=== PATIENT | female | born 1985 | race Caucasian/White ===

== ENCOUNTER 2016-09-02 17:01 | Emergency (ER) | payer OTHER ==
[~2016-09-02] VITALS: Ht 152.4 cm; Wt 54.4 kg
--- NOTE | 2016-09-02 17:25 | NUR ---
URINE SAMPLE COLLECTED SENT TO LAB
[2016-09-02 17:29] LABS: APPEARANCE,URINE Clear (CLEAR); BILIRUBIN,URINE Negative (NEGATIVE); BLOOD, URINE Negative Ery/uL (NEGATIVE); COLOR,URINE Yellow (YELLOW); KETONES,URINE Negative (NEGATIVE); LEUKOCYTE ESTERASE ,URINE Negative (NEGATIVE); NITRITE, URINE Negative (NEGATIVE); PROTEIN,URINE Negative (NEGATIVE); UGLUCOSE Negative (NEGATIVE); UROBILINOGEN,URINE 0.2 EU/dL (0.2)
--- NOTE | 2016-09-02 17:35 | NUR ---
PT BIB SELF C/O IUD STRINGS FEELING LONGER X4 MONTHS AND STATES "I THINK I HAVE BV" D/T "FISHY" SMELL X 5 DAYS, WORST TODAY. DENIES URINARY SYMPTOMS. DENIES HEMATURIA. SKIN WARM NON-DIAPHORETIC. NO OTHER COMPLAINTS. IN ER OB BED.
--- NOTE | 2016-09-02 17:58 | NUR ---
EDILMA ROD PA AT BEDSIDE FOR PELVIC EXAM
--- NOTE | 2016-09-02 18:02 | NUR ---
US AT BEDSIDE
[2016-09-02 19:42] VITALS: BP 131/78
--- NOTE | 2016-09-02 19:42 | NUR ---
Patient discharged to home in stable condition. Written and verbal after care instructions given. Patient verbalizes understanding of instruction. AMBULATORY WITH STEADY GAIT.
[2016-09-07 01:10] LABS: *NEISSERIA GONORRHOEAE NAA Negative (Negative); CHLAMYDIA TRACHOMATIS NAA Negative (Negative)
== END 2016-09-02 19:43 | disposition home or self-care (01) ==
LOC: ER 17:09
DX: N76.0 Acute vaginitis (principal); F41.9 Anxiety disorder, unspecified; Z91.040 Latex allergy status; Z88.8 Allergy status to other drugs, medicaments and biological substances; Z88.6 Allergy status to analgesic agent
CPT/HCPCS: 76856-TC; 81000-TC; 84703-TC; 87491; 87591; A4606; Z7610

== ENCOUNTER 2016-11-07 16:28 | Emergency (ER) | payer OTHER ==
[~2016-11-07] VITALS: Ht 152.4 cm; Wt 56.7 kg
[2016-11-07] MEDS ORDERED: IV NS 0.9% 500 ML BAG IV ONE (17:00)
[2016-11-07 17:07] LABS: BASOPHILS # (AUTO) 0.3 /CMM (0.0-0.2); EOSINOPHILS # (AUTO) 0.2 /CMM (0.0-0.7); EOSINOPHILS % (AUTO) 2.3 % (0.0-6.0); HEMATOCRIT 43 % (33-45); HEMOGLOBIN 14.4 g/dL (11.5-14.8); LYMPHOCYTES # (AUTO) 1.5 /CMM (0.8-4.8); LYMPHOCYTES % (AUTO) 22.4 % (20.0-44.0); MEAN CORPUSCULAR HEMOGLOBIN 32 PG (26.0-33.0); MEAN CORPUSCULAR HGB CONC 33 g/dl (31.0-36.0); MEAN CORPUSCULAR VOLUME 95 fL (82-100); MONOCYTES # (AUTO) 0.9 /CMM (0.1-1.30); MONOCYTES % (AUTO) 12.8 % (2.0-12.0); NEUTROPHILS # (AUTO) 3.8 /CMM (1.8-8.9); NEUTROPHILS % (AUTO) 58.5 % (43.0-81.0); PLATELET COUNT (AUTO) 219 /CMM (150-450); RDW COEFFICIENT OF VARIATION 14.8 (11.5-15.0); RED BLOOD CELL COUNT(AUTO) 4.56 MIL/uL (4.0-5.2); WHITE BLOOD COUNT (AUTO) 6.7 K/uL (4.3-11.0)
[2016-11-07] MEDS ORDERED: ALBUTEROL FS 2.5 MG/3 ML VIAL.NEB ONE (17:08)
[2016-11-07 17:09] LABS: APPEARANCE,URINE Clear (CLEAR); BILIRUBIN,URINE Negative (NEGATIVE); BLOOD, URINE Trace-intact Ery/uL (NEGATIVE); COLOR,URINE Yellow (YELLOW); KETONES,URINE Negative (NEGATIVE); LEUKOCYTE ESTERASE ,URINE Negative (NEGATIVE); NITRITE, URINE Negative (NEGATIVE); PROTEIN,URINE Negative (NEGATIVE); UGLUCOSE Negative (NEGATIVE); UROBILINOGEN,URINE 0.2 EU/dL (0.2)
[2016-11-07] MEDS ORDERED: IPRATROPIUM NEB FS 0.5 MG/2.5 ML AMPUL.NEB ONE (17:11)
[2016-11-07 17:13] LABS: BACTERIA,URINE Few /HPF (None Seen); PREGNANCY TEST URINE QUAL NEGATIVE (NEGATIVE); SQUAMOUS EPITHELIAL CELL,UR Few /HPF (None Seen); WBC,URINE 0-2 /HPF (0-3)
[2016-11-07 17:19] LABS: CALCIUM, SERUM 8.6 mg/dL (8.5-10.1); CREATININE 0.6 mg/dL (0.6-1.3); POTASSIUM 3.6 mmol/L (3.5-5.1)
[2016-11-07 17:25] LABS: ALBUMIN 3.9 g/dL (3.4-5.0); BILIRUBIN,DIRECT 0.1 mg/dL (0.0-0.2); BILIRUBIN,TOTAL 0.2 mg/dL (0.2-1.0); TOTAL PROTEIN, SERUM 7.7 g/dL (6.4-8.2)
[2016-11-07] MEDS ORDERED: LORAZEPAM INJ 2 MG/ML VIAL IV ONE (17:30)
[2016-11-07] MEDS ORDERED: IPRATROPIUM NEB FS 0.5 MG/2.5 ML AMPUL.NEB NEB ONE (17:30)
[2016-11-07] MEDS ORDERED: ALBUTEROL FS 2.5 MG/3 ML VIAL.NEB NEB ONE (17:30)
[2016-11-07] MEDS ORDERED: LORAZEPAM INJ 2 MG/ML VIAL ONE (17:31)
--- NOTE | 2016-11-07 17:38 | NUR ---
ULTRASOUND AT BEDSIDE
[2016-11-07 18:36] VITALS: BP 122/78
--- NOTE | 2016-11-07 18:38 | NUR ---
Patient discharged to home in stable condition. Written and verbal after care instructions given. Patient verbalizes understanding of instruction.IV removed. Catheter intact and site benign. Pressure and 4x4 applied to site. No bleeding noted. prescriptions given. no further complaints.
== END 2016-11-07 18:38 | disposition home or self-care (01) ==
LOC: ER 16:30
DX: R10.84 Generalized abdominal pain (principal); R14.0 Abdominal distension (gaseous); E27.9 Disorder of adrenal gland, unspecified; F41.9 Anxiety disorder, unspecified; Z88.6 Allergy status to analgesic agent; Z88.8 Allergy status to other drugs, medicaments and biological substances; Z91.040 Latex allergy status
CPT/HCPCS: 36415; 71250-TC; 76705-TC; 80048-TC; 80076-TC; 81000-TC; 83690-TC; 84703-TC; 85025-TC; A4606; J2060; J7040; Z7610

== ENCOUNTER → 2017-12-12 | Emergency (ER) | payer OTHER ==
[~2017-12-12] VITALS: Ht 152.4 cm; Wt 53.1 kg
--- NOTE | 2017-12-12 14:10 | NUR ---
BIB SELF, PATIENT IS ALERT AND ORIENTED X 4, VERBALLY RESPONSIVE. ON ROOM AIR AND TOLERATED WELL. KEPT PATIENT COMFORTABLE. WILL CONTINUE TO MONITOR ACCORDINGLY.
--- NOTE | 2017-12-12 14:30 | NUR ---
DR. MCKEON AT BEDSIDE FOR EVAL.
--- NOTE | 2017-12-12 14:30 | NUR ---
SCIENCE TUTOR AT BEDSIDE.
[2017-12-12 15:01] LABS: APPEARANCE,URINE CLEAR (CLEAR); BILIRUBIN,URINE NEGATIVE (NEGATIVE); BLOOD, URINE NEGATIVE Ery/uL (NEGATIVE); KETONES,URINE NEGATIVE (NEGATIVE); LEUKOCYTE ESTERASE ,URINE NEGATIVE (NEGATIVE); NITRITE, URINE NEGATIVE (NEGATIVE); PH,URINE 6.5 (5.0-8.0); PROTEIN,URINE NEGATIVE (NEGATIVE); UGLUCOSE NEGATIVE (NEGATIVE); UROBILINOGEN,URINE 0.2 EU/dL (0.2)
[2017-12-12 15:15] LABS: COLOR,URINE STRAW (YELLOW)
[2017-12-12 16:36] VITALS: BP 108/84
== END | disposition home or self-care (01) ==
LOC: ER 14:03
DX: R10.2 Pelvic and perineal pain (principal); J45.909 Unspecified asthma, uncomplicated; Z88.6 Allergy status to analgesic agent; Z91.040 Latex allergy status
CPT/HCPCS: 76856; 81001; 84703; 99285; A4606; Z7610; 81000-TC

== ENCOUNTER 2018-08-25 02:09 | Emergency (ER) | payer OTHER ==
[~2018-08-25] VITALS: Ht 157.5 cm; Wt 61.2 kg
--- NOTE | 2018-08-25 02:10 | NUR ---
TO BED 3 BIB PARAMEDICS C/O N/V H6 HRS. PT AAOX4 NO ACUTE DISTRESS NOTED, RESP EVEN AND UNLABORED. PT NOTED TO BE DRY HEAVING AT THIS TIME. PENDING ER MD SARMIENTO.
--- NOTE | 2018-08-25 02:22 | NUR ---
PT AMBULATORY TO THE BATHROOM WITH STEADY GAIT NOTED.
[2018-08-25] MEDS ORDERED: ONDANSETRON HCL/PF 4 MG/2 ML VIAL ONE (02:45)
[2018-08-25] MEDS ORDERED: LORAZEPAM INJ 2 MG/ML VIAL ONE ×2 (02:46→03:32)
[2018-08-25 02:59] LABS: BASOPHILS # (AUTO) 0.1 /CMM (0.0-0.2); BASOPHILS % (AUTO) 0.3 % (0.0-2.0); HEMATOCRIT 45 % (33-45); HEMOGLOBIN 15.1 g/dL (11.5-14.8); LYMPHOCYTES # (AUTO) 1.2 /CMM (0.8-4.8); LYMPHOCYTES % (AUTO) 7.5 % (20.0-44.0); MEAN CORPUSCULAR HGB CONC 34 g/dl (31.0-36.0); MEAN CORPUSCULAR VOLUME 101 fL (82-100); MONOCYTES # (AUTO) 1.1 /CMM (0.1-1.30); MONOCYTES % (AUTO) 6.4 % (2.0-12.0); NEUTROPHILS # (AUTO) 14.1 /CMM (1.8-8.9); NEUTROPHILS % (AUTO) 85.8 % (43.0-81.0); PLATELET COUNT (AUTO) 294 /CMM (150-450); RED BLOOD CELL COUNT(AUTO) 4.43 MIL/uL (4.0-5.2); WHITE BLOOD COUNT (AUTO) 16.4 K/uL (4.3-11.0)
[2018-08-25] MEDS ORDERED: IV NS 0.9% 1,000 ML BAG IV ONE (03:00)
[2018-08-25] MEDS ORDERED: FAMOTIDINE/PF INJ 20 MG/2 ML VIAL IV ONE ×2 (03:00→03:15)
[2018-08-25] MEDS ORDERED: ONDANSETRON HCL/PF 4 MG/2 ML VIAL IVP ONE (03:00)
[2018-08-25] MEDS ORDERED: LORAZEPAM INJ 2 MG/ML VIAL IV ONE ×2 (03:00→04:00)
[2018-08-25 03:13] LABS: ALBUMIN 4.6 g/dL (3.4-5.0); BILIRUBIN,DIRECT 0.2 mg/dL (0.0-0.2); BILIRUBIN,TOTAL 0.8 mg/dL (0.2-1.0); CALCIUM, SERUM 9.5 mg/dL (8.5-10.1); CREATININE 0.8 mg/dL (0.6-1.3); POTASSIUM 4.5 mmol/L (3.5-5.1)
[2018-08-25 03:17] LABS: ALCOHOL, BLOOD 7 mg/dL (0-0)
[2018-08-25 04:14] LABS: APPEARANCE,URINE Clear (CLEAR); BILIRUBIN,URINE Negative (NEGATIVE); BLOOD, URINE Small Ery/uL (NEGATIVE); COLOR,URINE Yellow (YELLOW); KETONES,URINE >=160 (NEGATIVE); LEUKOCYTE ESTERASE ,URINE Negative (NEGATIVE); NITRITE, URINE Negative (NEGATIVE); PH,URINE 5.5 (5.0-8.0); PROTEIN,URINE 100 mg/dl (NEGATIVE); UGLUCOSE Negative (NEGATIVE); UROBILINOGEN,URINE 0.2 EU/dL (0.2)
--- NOTE | 2018-08-25 04:18 | NUR ---
PT RESTING QUIETLY, NO ACUTE DISTRESS NOTED, RESP EVEN AND UNLABORED.
[2018-08-25 04:29] LABS: BACTERIA,URINE Few /HPF (None Seen); SQUAMOUS EPITHELIAL CELL,UR Few /HPF (None Seen)
--- NOTE | 2018-08-25 06:22 | NUR ---
IV removed. Catheter intact and site benign. Pressure and 4x4 applied to site. No bleeding noted. Patient discharged to home in stable condition. Written and verbal after care instructions given. Patient verbalizes understanding of instruction. ambulatory with a steady gait
[2018-08-25 06:23] VITALS: BP 130/69
--- NOTE | 2018-08-27 01:17 | NUR ---
LATE ENTRY: ATIVAN 0.5 MG IV GIVEN. WASTED 1.5MG WITH ED, CHIEF CHEMIST WITNESS.
== END 2018-08-25 06:24 | disposition home or self-care (01) ==
LOC: ER 02:10
DX: R10.84 Generalized abdominal pain (principal); R74.0 Nonspecific elevation of levels of transaminase and lactic acid dehydrogenase [LDH]; J45.909 Unspecified asthma, uncomplicated; G43.909 Migraine, unspecified, not intractable, without status migrainosus; Z88.6 Allergy status to analgesic agent; Z91.040 Latex allergy status
CPT/HCPCS: 36415; 71045; 74176; 80048; 80076; 80305; 80307; 81001; 83690; 84702; 85025; 96361; 96374; 96375; 96376; 99284; J2060 ×2; J2405; J3490; J7030; 81000-TC; G0480

== ENCOUNTER 2019-01-27 17:07 | Emergency (ER) | payer OTHER ==
[~2019-01-27] VITALS: Ht 152.4 cm; Wt 55.8 kg
--- NOTE | 2019-01-27 17:17 | NUR ---
PT BROUGHT IN BY PARAMEDICS FOR ETOH WITHDRAWL PT CALLED 911 AND HAS NOT DRANK SINCE THIS AM. WILL CONTINUE TO MONITOR
[2019-01-27] MEDS ORDERED: Thiamine 100 MG in IV D5W 50 ML IV SCH (18:00)
[2019-01-27] MEDS ORDERED: IV NS 0.9% 1,000 ML BAG IV ONE ×2 (18:00→19:30)
[2019-01-27] MEDS ORDERED: ONDANSETRON HCL/PF 4 MG/2 ML VIAL IVP ONE (18:00)
[2019-01-27 18:03] LABS: BASOPHILS % (AUTO) 0.3 % (0.0-2.0); HEMATOCRIT 40 % (33-45); HEMOGLOBIN 13.6 g/dL (11.5-14.8); LYMPHOCYTES # (AUTO) 1.1 /CMM (0.8-4.8); LYMPHOCYTES % (AUTO) 11.1 % (20.0-44.0); MEAN CORPUSCULAR HGB CONC 34 g/dl (31.0-36.0); MEAN CORPUSCULAR VOLUME 97 fL (82-100); MONOCYTES # (AUTO) 0.8 /CMM (0.1-1.30); NEUTROPHILS # (AUTO) 7.7 /CMM (1.8-8.9); NEUTROPHILS % (AUTO) 80.6 % (43.0-81.0); PLATELET COUNT (AUTO) 175 /CMM (150-450); RED BLOOD CELL COUNT(AUTO) 4.11 MIL/uL (4.0-5.2); WHITE BLOOD COUNT (AUTO) 9.6 K/uL (4.3-11.0)
[2019-01-27] MEDS ORDERED: Thiamine 100 MG/ML VIAL ONE (18:10)
[2019-01-27] MEDS ORDERED: ONDANSETRON HCL/PF 4 MG/2 ML VIAL ONE (18:10)
[2019-01-27 18:11] LABS: CALCIUM, SERUM 9.6 mg/dL (8.5-10.1); CARBON DIOXIDE 17 mmol/L (21-32); CHLORIDE 93 mmol/L (98-107); CREATININE 0.7 mg/dL (0.6-1.3); GLUCOSE 119 mg/dL (74-106); POTASSIUM 4.5 mmol/L (3.5-5.1); SODIUM SERUM 133 mmol/L (136-145); UREA NITROGEN, BLOOD 16 mg/dL (7-18)
[2019-01-27 18:18] LABS: ALANINE AMINOTRANSFERASE 66 U/L (12-78); ALBUMIN 4.5 g/dL (3.4-5.0); ALCOHOL, BLOOD < 3 mg/dL (0-0); ALKALINE PHOSPHATASE 63 U/L (46-116); ASPARTATE AMINOTRANSFERASE 88 U/L (15-37); BILIRUBIN,DIRECT 0.3 mg/dL (0.0-0.2); BILIRUBIN,TOTAL 1.3 mg/dL (0.2-1.0); TOTAL PROTEIN, SERUM 8.7 g/dL (6.4-8.2)
[2019-01-27] MEDS ORDERED: CHLORDIAZEPOXIDE HCL 25 MG CAPSULE PO ONE (19:00)
[2019-01-27 19:15] LABS: APPEARANCE,URINE Clear (CLEAR); BILIRUBIN,URINE MODERATE (NEGATIVE); BLOOD, URINE Small Ery/uL (NEGATIVE); COLOR,URINE Dark Yellow (YELLOW); KETONES,URINE >=160 (NEGATIVE); LEUKOCYTE ESTERASE ,URINE Negative (NEGATIVE); NITRITE, URINE Negative (NEGATIVE); PROTEIN,URINE >=300 mg/dl (NEGATIVE); UGLUCOSE Negative (NEGATIVE); UROBILINOGEN,URINE 0.2 EU/dL (0.2)
[2019-01-27 19:19] LABS: BACTERIA,URINE Moderate /HPF (None Seen); MUCUS,URINE Few /LPF (None Seen); SQUAMOUS EPITHELIAL CELL,UR Many /HPF (None Seen)
[2019-01-27] MEDS ORDERED: LORAZEPAM INJ 2 MG/ML VIAL IV ONE (20:00)
[2019-01-27] MEDS ORDERED: CHLORDIAZEPOXIDE HCL 25 MG CAPSULE ONE (20:01)
[2019-01-27] MEDS ORDERED: LORAZEPAM INJ 2 MG/ML VIAL ONE (20:02)
--- NOTE | 2019-01-27 22:07 | NUR ---
PATIENT C/O 4/10 ABDOMINAL SHARP PAIN, MD AWARE, NO ORDERS GIVEN.
--- NOTE | 2019-01-27 23:55 | NUR ---
PT STATES TAHT SHE WILL CALL FOR A RIDE THROUGH [facility].
--- NOTE | 2019-01-27 23:56 | NUR ---
GIVEN PRESCRIPTIONS AND EXPLAINED.
--- NOTE | 2019-01-27 23:57 | NUR ---
IV removed. Catheter intact and site benign. Pressure and 4x4 applied to site. No bleeding noted. Patient discharged to home in stable condition. Written and verbal after care instructions given. Patient verbalizes understanding of instruction.
[2019-01-28] VITALS: BP 125/77
== END 2019-01-28 | disposition home or self-care (01) ==
LOC: ER 17:12
DX: F10.239 Alcohol dependence with withdrawal, unspecified (principal); E86.0 Dehydration; J45.909 Unspecified asthma, uncomplicated; Z88.8 Allergy status to other drugs, medicaments and biological substances; Z91.040 Latex allergy status; Z88.6 Allergy status to analgesic agent; Y90.0 Blood alcohol level of less than 20 mg/100 ml
CPT/HCPCS: 36415; 80048; 80076; 80307; 81001; 84703; 85025; 87086; 96361; 96374; 96375; 99283; J2060; J2405; J3411; J7030; J7060 ×2; 81000-TC; G0480

== ENCOUNTER 2019-03-22 20:15 | Emergency (ER) | payer OTHER ==
[~2019-03-22] VITALS: Ht 152.4 cm; Wt 56.7 kg
--- NOTE | 2019-03-22 20:20 | NUR ---
PT BIBA C/O OF BACK PAIN RADIATING TO THE MID EPIGASTRIC AREA. +NV. PT ALSO ENDORSES COUGHING UP BLOOD. PT AAOX4, VSS, BREATHING EVEN AND UNLABORED ON ROOM AIR W/ NAD NOTED. CONNECTED TO THE MONITOR AND POX
--- NOTE | 2019-03-22 21:14 | NUR ---
DR KAUR AT BEDSIDE
[2019-03-22] MEDS ORDERED: MORPHINE SULFATE INJ 4 MG/ML DISP.SYRIN ONE ×2 (21:18→22:28)
[2019-03-22] MEDS ORDERED: FAMOTIDINE/PF INJ 20 MG/2 ML VIAL IV ONE ×2 (21:18→21:30)
[2019-03-22] MEDS ORDERED: ONDANSETRON HCL/PF 4 MG/2 ML VIAL ONE (21:18)
[2019-03-22] MEDS ORDERED: LORAZEPAM INJ 2 MG/ML VIAL ONE (21:19)
[2019-03-22] MEDS ORDERED: ONDANSETRON HCL/PF 4 MG/2 ML VIAL IVP ONE (21:30)
[2019-03-22] MEDS ORDERED: MORPHINE SULFATE INJ 2 MG/ML DISP.SYRIN IV ONE ×2 (21:30→22:30)
[2019-03-22] MEDS ORDERED: LORAZEPAM INJ 2 MG/ML VIAL IV ONE (21:30)
[2019-03-22] MEDS ORDERED: IV D5/0.45 NACL 1,000 ML IV ONE (21:30)
[2019-03-22 21:45] LABS: BASOPHILS % (AUTO) 0.6 % (0.0-2.0); EOSINOPHILS % (AUTO) 0.9 % (0.0-6.0); HEMATOCRIT 43 % (33-45); HEMOGLOBIN 14.7 g/dL (11.5-14.8); LYMPHOCYTES # (AUTO) 0.9 /CMM (0.8-4.8); LYMPHOCYTES % (AUTO) 15.3 % (20.0-44.0); MEAN CORPUSCULAR HGB CONC 34 g/dl (31.0-36.0); MEAN CORPUSCULAR VOLUME 100 fL (82-100); MONOCYTES # (AUTO) 0.5 /CMM (0.1-1.30); MONOCYTES % (AUTO) 8.5 % (2.0-12.0); NEUTROPHILS # (AUTO) 4.6 /CMM (1.8-8.9); NEUTROPHILS % (AUTO) 74.7 % (43.0-81.0); PLATELET COUNT (AUTO) 131 /CMM (150-450); RED BLOOD CELL COUNT(AUTO) 4.33 MIL/uL (4.0-5.2); WHITE BLOOD COUNT (AUTO) 6.2 K/uL (4.3-11.0)
[2019-03-22 22:06] LABS: BILIRUBIN,DIRECT 0.3 mg/dL (0.0-0.2); POTASSIUM 4.6 mmol/L (3.5-5.1)
[2019-03-22 22:07] LABS: CALCIUM, SERUM 9.4 mg/dL (8.5-10.1); CREATININE 0.5 mg/dL (0.6-1.3)
[2019-03-22 22:08] LABS: ALBUMIN 4.2 g/dL (3.4-5.0); BILIRUBIN,TOTAL 1.3 mg/dL (0.2-1.0); TOTAL PROTEIN, SERUM 8.2 g/dL (6.4-8.2)
[2019-03-22] MEDS ORDERED: CHLORDIAZEPOXIDE HCL 25 MG CAPSULE ONE (22:59)
[2019-03-22] MEDS ORDERED: MIDAZOLAM HCL 2 MG/2ML VIAL ONE (22:59)
[2019-03-22] MEDS ORDERED: MIDAZOLAM HCL 2 MG/2ML VIAL IV ONE (23:00)
[2019-03-22] MEDS ORDERED: CHLORDIAZEPOXIDE HCL 25 MG CAPSULE PO ONE (23:00)
[2019-03-23 01:12] VITALS: BP 121/84
--- NOTE | 2019-03-23 01:12 | NUR ---
Patient discharged to home in stable condition. Written and verbal after care instructions given. Patient verbalizes understanding of instruction.IV removed. Catheter intact and site benign. Pressure and 4x4 applied to site. No bleeding noted.
== END 2019-03-23 01:13 | disposition home or self-care (01) ==
LOC: ER 20:16
DX: R11.2 Nausea with vomiting, unspecified (principal); J45.909 Unspecified asthma, uncomplicated; Z88.8 Allergy status to other drugs, medicaments and biological substances; Z91.040 Latex allergy status; Z88.6 Allergy status to analgesic agent
CPT/HCPCS: 36415; 80048; 80076; 80307; 83690; 85025; 96361; 96374; 96375; 96376; 99283; J2060; J2250; J2270 ×2; J2405; J3490; G0480

== ENCOUNTER 2019-07-26 23:39 | Inpatient (IN) | payer OTHER ==
[~2019-07-26] VITALS: Ht 152.4 cm; Wt 59.9 kg
--- NOTE | 2019-07-26 23:53 | NUR ---
PT AAOX4. BIBRA C/O N/V X 12HRS, POSSIBLE ETOH WITHDRAWAL. RR EVEN AND UNLABORED, DENIES PAIN. PLACED ON MONITOR AND PULSE OX. VSS. AWAITING MD FOR EVAL.
--- NOTE | 2019-07-26 23:54 | NUR ---
BUZZSAW OPERATOR HELPER AT BEDSIDE FOR LABS.
[2019-07-27] MEDS ORDERED: ONDANSETRON HCL/PF - ER 4 MG/2 ML VIAL IV ONE
[2019-07-27] MEDS ORDERED: IV NS 0.9% 1,000 ML BAG IV ONE
[2019-07-27] MEDS ORDERED: ONDANSETRON HCL/PF 4 MG/2 ML VIAL ONE ×2 (00:01→01:55)
[2019-07-27 00:09] LABS: CALCIUM, SERUM 8.7 mg/dL (8.5-10.1); POTASSIUM 4.1 mmol/L (3.5-5.1)
--- NOTE | 2019-07-27 00:21 | NUR ---
Patient is resting comfortably in bed. Easily aroused. VSS.
[2019-07-27] MEDS ORDERED: METOCLOPRAMIDE HCL 10 MG/2 ML VIAL IV ONE (00:30)
[2019-07-27] MEDS ORDERED: KETOROLAC TROMETHAMINE INJ 30 MG/ML VIAL IV ONE (00:30)
[2019-07-27] MEDS ORDERED: KETOROLAC TROMETHAMINE INJ 30 MG/ML VIAL ONE (00:31)
[2019-07-27] MEDS ORDERED: METOCLOPRAMIDE HCL 10 MG/2 ML VIAL ONE (00:31)
--- NOTE | 2019-07-27 01:48 | NUR ---
Hoang sabillon in ED - 07/27/19 at 0148 by JORDANOR PT TRANSFERED PER ACLS PROTOCOL
[2019-07-27] MEDS ORDERED: LORAZEPAM INJ 2 MG/ML VIAL IV ONE ×2 (02:00→03:30)
[2019-07-27] MEDS ORDERED: ONDANSETRON HCL/PF 4 MG/2 ML VIAL IV ONE (02:00)
[2019-07-27] MEDS ORDERED: LORAZEPAM INJ 2 MG/ML VIAL ONE ×2 (02:11→03:28)
[2019-07-27] MEDS ORDERED: IV NS 0.9% 1,000 ML IV ONE (02:30)
--- NOTE | 2019-07-27 03:32 | NUR ---
LAB AT BEDSIDE FOR REDRAW
[2019-07-27 03:44] LABS: CALCIUM, SERUM 6.5 mg/dL (8.5-10.1); CREATININE 0.7 mg/dL (0.6-1.3); POTASSIUM 4.5 mmol/L (3.5-5.1)
--- NOTE | 2019-07-27 03:46 | NUR ---
CO2 AT 7. MD AWARE.
--- NOTE | 2019-07-27 04:57 | NUR ---
URINE COLLECTED AND SENT TO LAB
--- NOTE | 2019-07-27 05:06 | NUR ---
ER TALKING TO DR. TERRY REGARDING PT ADMISSION.
[2019-07-27 05:08] LABS: APPEARANCE,URINE Clear (CLEAR); BILIRUBIN,URINE Negative (NEGATIVE); BLOOD, URINE Small Ery/uL (NEGATIVE); COLOR,URINE Yellow (YELLOW); KETONES,URINE >=160 (NEGATIVE); LEUKOCYTE ESTERASE ,URINE Negative (NEGATIVE); NITRITE, URINE Negative (NEGATIVE); PH,URINE 5.5 (5.0-8.0); PROTEIN,URINE 100 mg/dl (NEGATIVE); UGLUCOSE Negative (NEGATIVE); UROBILINOGEN,URINE 0.2 EU/dL (0.2)
--- NOTE | 2019-07-27 05:08 | NUR ---
GLOBAL MANAGER AT BEDSIDE FOR BLOOD DRAW
[2019-07-27 05:17] LABS: BASOPHILS # (AUTO) 0.1 /CMM (0.0-0.2); HEMOGLOBIN 13.5 g/dL (11.5-14.8); LYMPHOCYTES # (AUTO) 0.9 /CMM (0.8-4.8); MONOCYTES # (AUTO) 0.8 /CMM (0.1-1.30); MONOCYTES % (AUTO) 7.6 % (2.0-12.0); PLATELET COUNT (AUTO) 93 /CMM (150-450)
[2019-07-27 05:20] LABS: BASOPHILS % (AUTO) 1.1 % (0.0-2.0); HEMATOCRIT 41 % (33-45); MEAN CORPUSCULAR HGB CONC 33 g/dl (31.0-36.0); MEAN CORPUSCULAR VOLUME 103 fL (82-100); NEUTROPHILS # (AUTO) 8.1 /CMM (1.8-8.9); NEUTROPHILS % (AUTO) 82.3 % (43.0-81.0); RED BLOOD CELL COUNT(AUTO) 3.97 MIL/uL (4.0-5.2); WHITE BLOOD COUNT (AUTO) 9.9 K/uL (4.3-11.0)
[2019-07-27] MEDS ORDERED: PROP10TA10 PO (05:23)
[2019-07-27] MEDS ORDERED: TIZA4TAB5 PO (05:23)
[2019-07-27 05:36] LABS: ALANINE AMINOTRANSFERASE 86 U/L (12-78); ALBUMIN 3.6 g/dL (3.4-5.0); ALCOHOL, BLOOD 49 mg/dL (0-0); ALKALINE PHOSPHATASE 66 U/L (46-116); ASPARTATE AMINOTRANSFERASE 259 U/L (15-37); BILIRUBIN,DIRECT 0.4 mg/dL (0.0-0.2); BILIRUBIN,TOTAL 0.6 mg/dL (0.2-1.0); TOTAL PROTEIN, SERUM 7.4 g/dL (6.4-8.2)
[2019-07-27 05:39] LABS: BACTERIA,URINE Few /HPF (None Seen); SQUAMOUS EPITHELIAL CELL,UR Few /HPF (None Seen); WBC,URINE 0-2 /HPF (0-3)
--- NOTE | 2019-07-27 05:55 | NUR ---
NURSE WILL CALL BACK FOR REPORT
[2019-07-27] MEDS ORDERED: Z GUARD REMEDY 2 OZ OINT TP PRN (06:00)
[2019-07-27] MEDS ORDERED: ONDANSETRON HCL/PF 4 MG/2 ML VIAL IVP PRN (06:00)
[2019-07-27] MEDS ORDERED: ACETAMINOPHEN 325 MG TABLET PO PRN (06:00)
[2019-07-27] MEDS ORDERED: MAG HYDROX/AL HYDROX/SIMETH 30 ML UDC PO PRN (06:00)
[2019-07-27] MEDS ORDERED: MAGNESIUM HYDROXIDE 30 ML UDC PO PRN (06:00)
--- NOTE | 2019-07-27 06:06 | NUR ---
REPORT GIVEN TO LOYDA FELDMAN
[2019-07-27 06:23] VITALS: BP 129/74
[2019-07-27 06:30] LABS: BAND % (MANUAL) 5 % (0.0-5.0); EOSINOPHILS % (MANUAL) 1 % (0-4); LYMPHOCYTES % (MANUAL) 10 % (16-48); MONOCYTES % (MANUAL) 7 % (0-11.0); NEUTROPHILS % (MANUAL) 77 (42-76)
--- NOTE | 2019-07-27 06:50 | NUR ---
RN NOTES: RECEIVED REPORT FROM MELISSA SCALES, PT BROUGHT TO THE UNIT AT 0615AM. PT A/O X4, ON RA RESPIRATIONS EVEN AND UNLABORED, IV ACCESS PATENT AND FLUSHING WELL, ON HL, PLACED ON TELE MONITORING SINUS TACHY HR 127. VS TAKEN AND RECORDED. SAFETY PRECAUTIONS FOR FALL INITIATED, CALL LIGHT IN REACH, NPO, DISCUSSED PLAN OF CARE TO PT. SAFETY PRECAUTIONS FOR FALL INITIATED, CALL LIGHT IN REACH, WILL ENDORSE TO DAY RN FOR COMPLETION OF ADMISSION.
[2019-07-27] MEDS: LORAZEPAM INJ 2 MG/ML VIAL IV PRN (07:49)
[2019-07-27] MEDS: IV D5/0.45 NACL 1,000 ML IV PRN ×2 (07:53→18:03)
[2019-07-27 08:00] VITALS: BP 155/97
--- NOTE | 2019-07-27 08:00 | NUR ---
TELE/RN OPENING NOTES RECEIVED PATIENT IS ON BED. PATIENT IS ALERT AND ORIENTED X 4. PATIENT IN NO APPARENT RESPIRATORY DISTRESS NOTED. IV ACCESS WAS IN PLACE AT RIGHT HAND # 22G PATENT AND INTACT. TELE MONITOR IN PLACE READING OF SINUS TACHY 119- 130. BED IN LOWEST POSITION, SIDE RAILS UP X2. CALL LIGHT WITHIN REACH. WILL CONTINUE TO MONITOR.
--- NOTE | 2019-07-27 08:27 | NUR ---
TELE/RN NOTES PATIENT LACTIC ACID 3.9 AND CARBON DIOXIDE 7 MD IS AWARE. WAITING FOR MD ORDER.
[2019-07-27] MEDS: PANTOPRAZOLE 40 MG VIAL IV SCH (09:08)
[2019-07-27] MEDS ORDERED: HYDROMORPHONE MDV 0.5 MG in IV D5W 50 ML IV PRN (11:00)
[2019-07-27] MEDS ORDERED: HYDROMORPHONE 1 MG/1 ML DISP.SYRIN IV PRN (11:30)
[2019-07-27] MEDS: HYDROCODONE/APAP 5/325MG 1 EACH TABLET PO PRN ×3 (12:14→21:43)
[2019-07-27] MEDS: CHLORDIAZEPOXIDE HCL 25 MG CAPSULE PO SCH ×2 (12:14→17:37)
[2019-07-27] MEDS: THIAMINE HCL 100 MG TABLET PO SCH (12:15)
[2019-07-27] MEDS: FOLIC ACID 1 MG TABLET PO SCH (12:15)
[2019-07-27] MEDS: METOCLOPRAMIDE HCL 10 MG/2 ML VIAL IV SCH ×2 (12:16→17:33)
[2019-07-27 16:00] VITALS: BP 140/91
[2019-07-27] MEDS: TIZANIDINE HCL 4 MG TABLET PO SCH (17:31)
[2019-07-27] MEDS: PROPRANOLOL HCL 10 MG TABLET PO SCH (17:34)
--- NOTE | 2019-07-27 18:41 | NUR ---
TELE/RN CLOSING NOTES PATIENT RESTING IN BED COMFORTABLY. PATIENT IS ALERT AND ORIENTED X4. BREATHING EVEN AND UNLABORED, PATIENT DENIES PAIN AT THIS TIME. PATIENT IN NO APPARENT RESPIRATORY DISTRESS NOTED. PATIENT IN ROOM AIR SATURATION OF 98%. TELE MONITOR READS SINUS RHYTHM 88 BPM. IVF OF D5 1/2 NS 1L AT 125ML/HR ON AND INFUSING WELL. IV ACCESS IN PLACE AT RIGHT HAND #22 INTACT AND PATENT, FLUSHING WELL. NO S/S OF REDNESS OR INFILTRATION. SAFETY PRECAUTIONS IMPLEMENTED, SEEN AND EXAMINED BY MD WITH ORDERS MADE AND CARRIED OUT. ALL DUE MEDS WAS GIVEN. CHECKED PATIENT EVERY TWO HOURS. BED LOCKED IN LOW POSITION; SIDE RAILS UP X2; CALL LIGHT WITHIN REACH. WILL ENDORSED TO ELECTRONIC ENGINEERING TECHNICIAN FOR ANA.
--- NOTE | 2019-07-27 19:00 | NUR ---
SITE SUPERVISOR OPENING NOTES: RECEIVED PATIENT IN BED, ASLEEP. CALL LIGHT WITHIN REACH. BED IN LOWEST AND LOCKED POSITION.
[2019-07-27 19:47] VITALS: BP 113/68
[2019-07-27 20:00] VITALS: BP 113/68
--- NOTE | 2019-07-27 22:14 | NUR ---
IV ON THE RIGHT HAND INFILTRATED, REMOVED WITH TIP INTACT. REINSERTED ON THE LEFT HAND G22.
[2019-07-27] MEDS: ZOLPIDEM TARTRATE 5 MG TABLET PO PRN (22:48)
[2019-07-28] VITALS: BP 132/87
[2019-07-28] MEDS: METOCLOPRAMIDE HCL 10 MG/2 ML VIAL IV SCH ×4 (00:57→17:26)
[2019-07-28 03:39] VITALS: BP 129/92
[2019-07-28 04:00] VITALS: BP 129/82
[2019-07-28] MEDS: IV D5/0.45 NACL 1,000 ML IV PRN ×2 (05:44→17:31)
--- NOTE | 2019-07-28 05:52 | NUR ---
TELEGRAPH REPEATER INSTALLER CLOSING NOTES: PATIENT IN BED,AWAKE, A/O X4. NOT IN PAIN AT THIS TIME. NO SOB NOTED. AMBULATORY. PATIENT REQUESTED TO HOLD HER IVF AT THIS TIME,WILL RESUME LATER TODAY. BED IN LOWEST AND LOCKED POSITION. CALL LIGHT WITHIN REACH. NO NAUSEA OR VOMITTING DURING SHIFT. AFEBRILE. VITALS WNL. RESTED THROUGHOUT THE NIGHT.
[2019-07-28 06:35] LABS: BASOPHILS % (AUTO) 0.2 % (0.0-2.0); EOSINOPHILS % (AUTO) 1.9 % (0.0-6.0); HEMATOCRIT 38 % (33-45); LYMPHOCYTES # (AUTO) 1.4 /CMM (0.8-4.8); LYMPHOCYTES % (AUTO) 20.6 % (20.0-44.0); MEAN CORPUSCULAR HGB CONC 34 g/dl (31.0-36.0); MEAN CORPUSCULAR VOLUME 99 fL (82-100); MONOCYTES # (AUTO) 0.7 /CMM (0.1-1.30); MONOCYTES % (AUTO) 9.6 % (2.0-12.0); NEUTROPHILS # (AUTO) 4.7 /CMM (1.8-8.9); NEUTROPHILS % (AUTO) 67.7 % (43.0-81.0); PLATELET COUNT (AUTO) 72 /CMM (150-450); RED BLOOD CELL COUNT(AUTO) 3.81 MIL/uL (4.0-5.2); WHITE BLOOD COUNT (AUTO) 6.9 K/uL (4.3-11.0)
[2019-07-28 06:38] LABS: ALBUMIN 3.4 g/dL (3.4-5.0); CALCIUM, SERUM 8.3 mg/dL (8.5-10.1); CREATININE 0.5 mg/dL (0.6-1.3); MAGNESIUM 1.7 mg/dL (1.8-2.4); PHOSPHORUS 1.1 mg/dL (2.5-4.9); POTASSIUM 3.4 mmol/L (3.5-5.1); TOTAL PROTEIN, SERUM 6.8 g/dL (6.4-8.2)
[2019-07-28] MEDS: LORAZEPAM INJ 2 MG/ML VIAL IV PRN ×4 (06:39→17:56)
[2019-07-28 06:45] LABS: THYROID STIMULATING HORMONE 1.589 uIU/mL (0.358-3.74)
[2019-07-28 07:34] LABS: BAND % (MANUAL) 1 % (0.0-5.0); EOSINOPHILS % (MANUAL) 1 % (0-4); LYMPHOCYTES % (MANUAL) 16 % (16-48); MONOCYTES % (MANUAL) 8 % (0-11.0); NEUTROPHILS % (MANUAL) 74 (42-76)
[2019-07-28 08:00] VITALS: BP 147/96
--- NOTE | 2019-07-28 08:00 | NUR ---
FRENCH EDGE OPERATOR OPENING NOTES RECEIVED PATIENT IN BED, AWAKE, CONSCIOUS, COOPERATIVE, BREATHING AT ROOM AIR, UNLABORED BREATHING, NO SIGNS OF RESPIRATORY DISTRESS, LEFT HAND #22 D51/2 NS @125 ML/HR, INFUSING WELL, SIDE RAILS UP.
[2019-07-28] MEDS: Magnesium 1GM/D5W 100ML PREMIX 100 ML IV SCH ×2 (08:26→09:42)
[2019-07-28] MEDS ORDERED: POTASSIUM CHLORIDE 20 MEQ TAB.PRT.SR PO ONE (08:30)
[2019-07-28] MEDS: THIAMINE HCL 100 MG TABLET PO SCH (09:26)
[2019-07-28] MEDS: PANTOPRAZOLE 40 MG VIAL IV SCH (09:26)
[2019-07-28] MEDS: FOLIC ACID 1 MG TABLET PO SCH (09:26)
[2019-07-28] MEDS: CHLORDIAZEPOXIDE HCL 25 MG CAPSULE PO SCH ×2 (09:27→16:09)
[2019-07-28] MEDS: K PHOS NEUTRAL 250 MG TABLET PO SCH ×4 (09:27→21:36)
[2019-07-28] MEDS: PROPRANOLOL HCL 10 MG TABLET PO SCH ×2 (09:27→16:09)
[2019-07-28 16:00] VITALS: BP 138/86
[2019-07-28] MEDS: TIZANIDINE HCL 4 MG TABLET PO SCH (17:26)
--- NOTE | 2019-07-28 18:30 | NUR ---
COUNTERINTELLIGENCE ANALYST CLOSING NOTES ENDORSED PATIENT TO DRIVER WHEELCHAIR NURSE IN BED, AWAKE, CONSCIOUS, COOPERATIVE, BREATHING AT ROOM AIR, UNLABORED BREATHING, NO SIGNS OF RESPIRATORY DISTRESS, LEFT HAND #22 D51/2 NS @125 ML/HR, INFUSING WELL, NO SIGNS OF REDNESS OR INFILTRATION NOTED, SIDE RAILS UP FOR SAFETY.
[2019-07-28 20:00] VITALS: BP 131/66
[2019-07-28] MEDS: ZOLPIDEM TARTRATE 5 MG TABLET PO PRN (21:36)
--- NOTE | 2019-07-28 22:55 | NUR ---
MS/TELE/RN AT INITIAL ROUNDING AT 1930, PATIENT WAS AWAKE, ALERT, ORIENTED, COMFORTABLE, NO C/O PAIN, NO SIGNS OF DISTRESS NOTED, CALL LIGHT IN REACH. REFUSED IV FLUID.
[2019-07-29] MEDS: METOCLOPRAMIDE HCL 10 MG/2 ML VIAL IV SCH ×4 (00:25→17:24)
--- NOTE | 2019-07-29 06:50 | NUR ---
MS/TELE/RN PATIENT IS AWAKE, COMFORTABLE, NO C/O PAIN, NO DISTRESS NOTED, CALL LIGHT IN REACH, ALL NEEDS ATTENDED AT THIS TIME, WILL CONTINUE TO MONITOR.
--- NOTE | 2019-07-29 08:00 | NUR ---
MS RN OPENING NOTES RECEIVED PATIENT IN BED, AWAKE, CONSCIOUS, COOPERATIVE, COHERENT, BREATHING AT ROOM AIR, UNLABORED BREATHING, NO SIGNS OF RESPIRATORY DISTRESS NOTED, LEFT HAND D51/2 NS @125ML/HR, SIDE RAILS UP.
[2019-07-29] MEDS: PROPRANOLOL HCL 10 MG TABLET PO SCH ×2 (08:44→16:29)
[2019-07-29] MEDS: PANTOPRAZOLE 40 MG VIAL IV SCH (08:44)
[2019-07-29] MEDS: FOLIC ACID 1 MG TABLET PO SCH (08:44)
[2019-07-29] MEDS: K PHOS NEUTRAL 250 MG TABLET PO SCH ×3 (08:45→16:29)
[2019-07-29] MEDS: CHLORDIAZEPOXIDE HCL 25 MG CAPSULE PO SCH (08:45)
[2019-07-29] MEDS: THIAMINE HCL 100 MG TABLET PO SCH (08:45)
[2019-07-29] MEDS ORDERED: LORAZEPAM INJ 2 MG/ML VIAL IV ONE (09:30)
[2019-07-29 09:46] VITALS: BP 141/98
--- NOTE | 2019-07-29 10:15 | NUR ---
MS RN NOTES PATIENT WAS BROUGHT TO CT SCAN FOR A PROCEDURE.
[2019-07-29 14:30] LABS: ALBUMIN 3.4 g/dL (3.4-5.0); CALCIUM, SERUM 8.8 mg/dL (8.5-10.1); CREATININE 0.5 mg/dL (0.6-1.3); MAGNESIUM 1.8 mg/dL (1.8-2.4); PHOSPHORUS 3.4 mg/dL (2.5-4.9); TOTAL PROTEIN, SERUM 7.1 g/dL (6.4-8.2)
--- NOTE | 2019-07-29 14:53 | NUR ---
Dr. Shipman was notified regarding CT abdomen result, received an order for CT Chest with IV Contrast stat , noted and carried out. Per Chart : Pt has allergy to bupropion, latex and tramadol, Aki Bedside RN aware, and verified with the patient that pt doesn't have allergy to seafoods and dye.
[2019-07-29] MEDS: LORAZEPAM INJ 2 MG/ML VIAL IV PRN (15:28)
[2019-07-29] MEDS ORDERED: IOHEXOL-300 100 ML VIAL IV ONE (15:37)
[2019-07-29] MEDS ORDERED: POTASSIUM CHLORIDE 20 MEQ TAB.PRT.SR PO ONE (16:30)
[2019-07-29 17:12] VITALS: BP 142/78
[2019-07-29] MEDS: HYDROCODONE/APAP 5/325MG 1 EACH TABLET PO PRN (17:24)
[2019-07-29] MEDS: TIZANIDINE HCL 4 MG TABLET PO SCH (17:24)
--- NOTE | 2019-07-29 19:09 | NUR ---
MS RN CLOSING NOTES ENDORSED PATIENT TO EXCHANGE MECHANIC NURSE IN BED, AWAKE, CONSCIOUS, COOPERATIVE, COHERENT, BREATHING AT ROOM AIR, UNLABORED BREATHING, NO SIGNS OF RESPIRATORY DISTRESS, LEFT HAND D51/2NS AT 125LPM, INFUSING WELL, SIDE RAILS UP FOR SAFETY.
--- NOTE | 2019-07-29 19:20 | NUR ---
MS RN OPENING NOTES RECEIVE PATIENT FROM MORNING SHIFT, ALERT AND ORIENTED X 3. AMBULATORY, VERBALLY RESPONSIVE AND ABLE TO FOLLOW DIRECTIONS. BREATHING REGULAR AND UNLABORED ON ROOM AIR. LEFT HAND G22 INTACT AND PATENT, FLUSHING WELL WITH NO BLEEDING AND S/S OF INFILTRATION NOTED. DENIES SUICIDAL IDEATION, NO COMPLAINTS OF PAIN/DISCOMFORT REPORTED AT THIS TIME. BED LOW AND LOCKED ON SEMI FOWLERS POSITION. CALL LIGHT IN REACH. WILL CONTINUE TO MONITOR.
--- NOTE | 2019-07-29 20:35 | NUR ---
MS MATE CHIEF NOTES DISCHARGE PATIENT; ALERT AND ORIENTED X 3, AMBULATORY. PER HER WILL TAKE UBER TO GO HOME. DISCHARGE PACKET GIVEN, IV LINE AND ID BAND REMOVED. INSTRUCTED TO HAVE THE PHARMACY CALL FOR PRESCRIPTION FOR ZOFRAN. DC ON STABLE CONDITION.
== END 2019-07-29 20:30 | disposition home or self-care (01) | DRG 775 ==
LOC: ER 23:39 → TELE 07-27 05:41 → MED 07-28 11:41
PROVIDERS: ADMIT Internal Medicine; ATTEND Internal Medicine
DX: F10.239 Alcohol dependence with withdrawal, unspecified (principal); K85.20 Alcohol induced acute pancreatitis without necrosis or infection; E27.8 Other specified disorders of adrenal gland; E87.2 Acidosis; K31.84 Gastroparesis; E86.0 Dehydration; G25.0 Essential tremor; J45.909 Unspecified asthma, uncomplicated; F12.90 Cannabis use, unspecified, uncomplicated; R91.1 Solitary pulmonary nodule; Y90.2 Blood alcohol level of 40-59 mg/100 ml
CPT/HCPCS: 36415; 71260-TC; 74150-TC; 80048-TC; 80053-TC; 80061-TC; 80076-TC; 80305; 81000-TC; 83605-TC; 83690-TC; 83735-TC; 84100-TC; 84443-TC; 84703-TC; 85025-TC; 87081-TC; A4216; C9113; G0378; G0480; J1170; J1885; J2060; J2405; J2765; J3475; J3490; J7030; J7060; Q9967